=== PATIENT | male | born 1980 | race African-American/Black ===

== ENCOUNTER 2018-02-28 21:11 | Emergency (ER) | payer SELFPAY ==
[~2018-02-28] VITALS: Ht 172.7 cm; Wt 80.0 kg
--- NOTE | 2018-02-28 21:49 | NUR ---
PT HERE FOR ALL OVER ABDOMINAL PAIN WITH N/V THAT STARTED THIS MORNING. PT HAS HX OF PANCREATITIS. PT DENIES ETOH USE. PT IN NAD. CALL LIGHT IN REACH
[2018-02-28 22:23] LABS: BASOPHILS # (AUTO) 0.02 x10^3/uL (0-0.1); BASOPHILS % (AUTO) 0 % (0-1); EOSINOPHILS # (AUTO) 0.04 x10^3/uL (0-0.4); EOSINOPHILS % (AUTO) 1 % (1-7); LYMPHOCYTES # (AUTO) 1.75 x10^3/uL (1-3.4); LYMPHOCYTES % (AUTO) 24 % (22-44); MD NO; MEAN CORPUSCULAR HEMOGLOBIN 30.9 pg (27.5-34.5); MEAN CORPUSCULAR HGB CONC 33.8 g/dL (33.2-36.2); MEAN CORPUSCULAR VOLUME 91.3 fL (81-97); MEAN PLATELET VOLUME 9.4 fL (7.4-10.4); MONOCYTES # (AUTO) 0.37 x10^3/uL (0.2-0.8); MONOCYTES % (AUTO) 5 % (2-9); NEUTROPHILS # (AUTO) 5.25 x10^3/uL (1.8-6.8); NEUTROPHILS % (AUTO) 71 % (42-75); PLATELET COUNT 154 x10^3/uL (130-400); RED BLOOD COUNT 4.97 x10^6/uL (4.38-5.82); RED CELL DISTRIBUTION WIDTH 14.2 % (9.4-14.8)
[2018-02-28] MEDS ORDERED: HYDROcodone/APAP 5/325 TABLET PO ONE (22:30)
[2018-02-28] MEDS ORDERED: ONDANSETRON ODT 4 MG PO ONE (22:30)
[2018-02-28] MEDS ORDERED: PROMETHAZINE 25 MG/ML, 1ML IM ONE ×2 (22:30→23:30)
[2018-02-28] MEDS ORDERED: PROMETHAZINE 25 MG/ML, 1ML ONE ×2 (22:32→23:25)
[2018-02-28] MEDS ORDERED: ONDANSETRON ODT 4 MG ONE (22:32)
[2018-02-28] MEDS ORDERED: HYDROcodone/APAP 5/325 TABLET ONE (22:33)
[2018-02-28 22:35] LABS: ALANINE AMINOTRANSFERASE 29 U/L (12-78); ALBUMIN 3.7 g/dL (3.4-5.0); ANION GAP 10 mmol/L (5-15); CALCIUM 8.8 mg/dL (8.5-10.1); CHLORIDE 111 mmol/L (98-107); CREATININE 0.84 mg/dL (0.7-1.3)
[2018-02-28 22:37] LABS: ALKALINE PHOSPHATASE 95 U/L (45-117); BILIRUBIN,TOTAL 0.9 mg/dL (0.2-1.0); TOTAL PROTEIN 7.2 g/dL (6.4-8.2)
[2018-02-28] MEDS ORDERED: METOCLOPRAMIDE 5 MG/ML, 2ML ONE (23:15)
[2018-02-28] MEDS ORDERED: MORPHINE SULFATE 4 MG/ML, 1ML ONE (23:16)
[2018-02-28 23:20] VITALS: BP 125/65
[2018-02-28] MEDS ORDERED: METOCLOPRAMIDE 5 MG/ML, 2ML IVPush ONE (23:30)
[2018-02-28] MEDS ORDERED: SODIUM CHLORIDE FLUSH 10ML SYR IVF ONE (23:30)
[2018-02-28] MEDS ORDERED: MORPHINE SULFATE 4 MG/ML, 1ML IVPush PRN (23:30)
[2018-02-28] MEDS ORDERED: SODIUM CHLORIDE 0.9% 1,000ML IVBOLUS ONE (23:30)
--- NOTE | 2018-02-28 23:30 | NUR ---
LATE ENTRY: PT VOMITING ON FLOOR WHEN RN WENT TO ROOM TO MEDICATE. PIV STARTED AND PT MEDICATED AND FLUIDS RUNNING. CALL LIGHT IN REACH
--- NOTE | 2018-03-01 00:22 | NUR ---
Patient given discharge instructions and they have confirmed that they understand the instructions. Patient ambulatory with steady gait.
== END 2018-03-01 00:27 | disposition home or self-care (01) ==
LOC: ED 23:59
DX: R10.13 Epigastric pain (principal); R11.2 Nausea with vomiting, unspecified
CPT/HCPCS: 36415; 80053; 80307; 83690; 85025; 96361; 96372; 96374; 96375; 99283; J2550; J2765; J7030; Q0162

== ENCOUNTER 2018-03-02 20:01 | Emergency (ER) | payer SELFPAY ==
[~2018-03-02] VITALS: Ht 175.3 cm; Wt 63.9 kg
[2018-03-02] MEDS ORDERED: ONDANSETRON ODT 4 MG PO ONE (20:30)
[2018-03-02] MEDS ORDERED: SODIUM CHLORIDE 0.9% 1,000ML IVBOLUS ONE (20:30)
[2018-03-02] MEDS ORDERED: PROMETHAZINE 25 MG/ML, 1ML IM ONE (20:30)
[2018-03-02] MEDS ORDERED: FAMOTIDINE 20 MG/2 ML IVPush ONE (20:30)
[2018-03-02] MEDS ORDERED: LORazepam 2 MG/ML, 1ML IVPush ONE (20:30)
[2018-03-02] MEDS ORDERED: SODIUM CHLORIDE FLUSH 10ML SYR IVF ONE (20:30)
[2018-03-02] MEDS ORDERED: PROMETHAZINE 25 MG/ML, 1ML ONE (20:37)
[2018-03-02] MEDS ORDERED: LORazepam 2 MG/ML, 1ML ONE (20:37)
[2018-03-02] MEDS ORDERED: FAMOTIDINE 20 MG/2 ML ONE (20:37)
[2018-03-02 20:38] LABS: BASOPHILS # (AUTO) 0.02 x10^3/uL (0-0.1); BASOPHILS % (AUTO) 0 % (0-1); EOSINOPHILS % (AUTO) 0 % (1-7); LYMPHOCYTES % (AUTO) 16 % (22-44); MD NO; MEAN CORPUSCULAR HEMOGLOBIN 30.8 pg (27.5-34.5); MEAN CORPUSCULAR VOLUME 90.6 fL (81-97); MEAN PLATELET VOLUME 9.5 fL (7.4-10.4); MONOCYTES # (AUTO) 0.37 x10^3/uL (0.2-0.8); MONOCYTES % (AUTO) 5 % (2-9); NEUTROPHILS # (AUTO) 5.76 x10^3/uL (1.8-6.8); NEUTROPHILS % (AUTO) 78 % (42-75); PLATELET COUNT 213 x10^3/uL (130-400); RED BLOOD COUNT 5.48 x10^6/uL (4.38-5.82); RED CELL DISTRIBUTION WIDTH 13.8 % (9.4-14.8)
[2018-03-02 20:44] LABS: ALANINE AMINOTRANSFERASE 31 U/L (12-78); ALBUMIN 4.4 g/dL (3.4-5.0); ANION GAP 13 mmol/L (5-15); CALCIUM 9.5 mg/dL (8.5-10.1); CHLORIDE 104 mmol/L (98-107); CREATININE 1.37 mg/dL (0.7-1.3)
[2018-03-02 20:47] LABS: ALKALINE PHOSPHATASE 104 U/L (45-117); BILIRUBIN,TOTAL 1.1 mg/dL (0.2-1.0); TOTAL PROTEIN 8.4 g/dL (6.4-8.2)
--- NOTE | 2018-03-02 20:48 | NUR ---
TASK RN: PT MEDICATED PER EMAR FOR EPIGASTRIC PAIN AND NAUSEA. PT REPORTS ABD PAIN/N/V/D X "A FEW DAYS". REPORTS BEING SEEN IN ED FOR SAME AND HAS BEEN UNABLE TO FILL RX'S. PT DENIES CP/SOB/BLOOD IN EMESIS OR STOOL/URINARY SYMPTOMS, HX OF PANCREATITIS. PT MOSTLY RESTLESS, "I JUST CAN'T GET COMFORTABLE" "I JUST NEED TO SLEEP, I HAVEN'T BEEN SLEEPING". BP/SPO2 MONITOR IN PLACE. SPO2 >90% ON RA. FRIEND AT BEDSIDE. Addendum: 03/02/18 at 2205 by LWEGENER *PT HAS HX OF PANCREATITIS
[2018-03-02] MEDS ORDERED: MAALOX/HYOSCYAMINE/LIDOCAINE 45 ML BTL PO ONE (21:00)
[2018-03-02] MEDS ORDERED: ONDANSETRON 2MG/ML, 2ML ONE (21:10)
--- NOTE | 2018-03-02 21:15 | NUR ---
TASK RN: PT W/ EPISODE OF EMESIS ONTO FLOOR. PT MEDICATED PER EMAR FOR NAUSEA.
[2018-03-02] MEDS ORDERED: MAALOX/HYOSCYAMINE/LIDOCAINE 45 ML BTL ONE (21:29)
[2018-03-02] MEDS ORDERED: ONDANSETRON 2MG/ML, 2ML IVPush ONE (21:30)
[2018-03-02 22:55] VITALS: BP 130/64
== END 2018-03-02 23:27 | disposition home or self-care (01) ==
LOC: ED 20:33
DX: R10.13 Epigastric pain (principal); R11.2 Nausea with vomiting, unspecified; E86.0 Dehydration
CPT/HCPCS: 36415; 80053; 83690; 85025; 96361; 96372; 96374; 96375; 99283; J2060; J2405; J2550; J3490; J7030